=== PATIENT | female | born 1985 ===

== ENCOUNTER 2017-03-02 19:35 | Emergency (ER) | payer OTHER ==
[2017-03-02 19:45] VITALS: BP 135/83; PULSE 103; RESP 18; TEMP 98.1; O2SAT 100
[2017-03-02] MEDS ORDERED: Sodium Chloride 0.9% 1,000 ML IV STA (20:59)
--- NOTE | 2017-03-02 21:02 | ED PDOC ---
HPI: Abdomen Time Seen by Provider: 03/02/17 20:50 Chief Complaint (Nursing): Abdominal Pain Chief Complaint (Provider): abdominal pain History Per: Patient History/Exam Limitations: no limitations Onset/Duration Of Symptoms: Days (2) Current Symptoms Are (Timing): Still Present Location Of Pain/Discomfort: RLQ Quality Of Discomfort: Sharp, "Pain" Additional History Per: Patient Additional Complaint(s): 31 y/o female presents with "pain to right ovary" x 2 days. Denies fever, nausea/vomiting, changes in bowel movements, dysuria, hematuria, vaginal bleeding, vaginal dishcarge. Patient states she was seen last month for abdominal pain on same side, but that this pain is lower. Abnormal Vaginal Bleeding: No Past Medical History Reviewed: Historical Data, Nursing Documentation, Vital Signs Vital Signs: Last Vital Signs Temp 98.1 F 03/02/17 19:42 Pulse 103 H 03/02/17 19:42 Resp 18 03/02/17 19:42 BP 135/83 03/02/17 19:42 Pulse Ox 100 03/02/17 21:02 - Medical History PMH: No Chronic Diseases - Surgical History Surgical History: No Surg Hx - Family History Family History: States: Unknown Family Hx - Home Medications Home Medications: Ambulatory Orders Medication Instructions Recorded Cyclobenzaprine [Cyclobenzaprine 10 mg PO TID PRN #0 tab 12/27/15 HCl] traMADol [Ultram] 50 mg PO Q6 PRN #16 tab 12/27/15 Docusate [Colace] 100 mg PO DAILY #10 cap 01/30/17 Naproxen [Naprosyn] 500 mg PO Q12 PRN #20 tablet 03/03/17 - Allergies Allergies/Adverse Reactions: Allergies Allergy/AdvReac Type Severity Reaction Status Date / Time No Known Allergies Allergy Verified 12/26/15 23:03 Review of Systems ROS Statement: Except As Marked, All Systems Reviewed And Found Negative Gastrointestinal: Positive for: Abdominal Pain Physical Exam - Reviewed Nursing Documentation Reviewed: Yes Vital Signs Reviewed: Yes - Physical Exam Appears: Positive for: Well, Non-toxic, No Acute Distress Head Exam: Positive for: ATRAUMATIC, NORMAL INSPECTION, NORMOCEPHALIC Skin: Positive for: Normal Color Eye Exam: Positive for: Normal appearance ENT: Positive for: Normal ENT Inspection Cardiovascular/Chest: Positive for: Regular Rate, Rhythm Respiratory: Positive for: Normal Breath Sounds Gastrointestinal/Abdominal: Positive for: Bowel Sounds, Soft, Tenderness (right pelvic, suprapubic) Extremity: Positive for: Normal ROM Neurologic/Psych: Positive for: Alert, Oriented - Laboratory Results Result Diagrams: 03/02/17 22:00 03/02/17 22:15 - ECG O2 Sat by Pulse Oximetry: 100 - CT Scan/US transvaginal u/s Other Rad Studies (CT/US): Interpreted By Me Other Rad Interpretation: prelim tech reports fibroids in uterus - Progress ED Course And Treament: labs, TV u/s, urine On re-eval, patient notes improvement of pain. Patient educated on findings, discharged with rx Naproxen. Advised follow up [employer] (appt in 2 weeks) Patient advised to return to ED sooner for fever, vomiting, worsening pain, or other concerning symptoms. Disposition - Clinical Impression Clinical Impression: Uterine fibroid - Patient ED Disposition Is Patient to be Admitted: No Counseled Patient/Family Regarding: Studies Performed, Diagnosis, Need For Followup, Rx Given - Disposition Disposition: Routine/Home Disposition Time: 01:38 Condition: IMPROVED Prescriptions: Naproxen [Naprosyn] 500 mg PO Q12 PRN #20 tablet PRN Reason: Pain, Moderate (4-7) Instructions: Uterine Fibroids (ED)
[2017-03-02 22:21] LABS: BASO % 0.3 % (0.0-2.0); EOS % 0.5 % (0.0-4.0); HEMATOCRIT 39.8 % (34.0-47.0); LYMPH # 2.6 K/uL (1.0-4.3); LYMPH % 28.7 % (20.0-40.0); MEAN CELL VOLUME 87.8 fl (81.0-99.0); MEAN CORPUSCULAR HGB CONC 33.1 g/dL (33.0-37.0); MEAN PLATELET VOLUME 7.9 fl (7.2-11.7); MONO # 0.6 K/uL (0.0-0.8); MONO % 6.1 % (0.0-10.0); NEUT # 5.9 K/uL (1.8-7.0); NEUT % 64.4 % (50.0-75.0); NRBC % 0.2 % (0.0-0.0); WHITE BLOOD COUNT 9.2 K/uL (4.8-10.8)
[2017-03-02 22:37] LABS: ALKALINE PHOSPHATASE 83 U/L (38-126); ALT/SGPT 15 U/L (9-52); AST/SGOT 28 U/L (14-36); BILIRUBIN,TOTAL 0.4 mg/dl (0.2-1.3); BLOOD UREA NITROGEN 9 mg/dl (7-17); CALCIUM 9.3 mg/dL (8.4-10.2); CARBON DIOXIDE 24 mmol/L (22-30); CHLORIDE 103 mmol/L (98-107); GFR AFRICAN-AMERICAN > 60; GLUCOSE,RANDOM 94 mg/dL (65-105); POTASSIUM 4.3 MMOL/L (3.6-5.0); SODIUM 142 mmol/l (132-148); TOTAL PROTEIN 7.7 G/DL (6.3-8.2)
[2017-03-02 22:42] LABS: RBC URINE 1 /hpf (0-3); URINE BACTERIA FEW (<OCC); URINE BILIRUBIN NEGATIVE (NEGATIVE); URINE BLOOD NEGATIVE (NEGATIVE); URINE COLOR STRAW (YELLOW); URINE GLUCOSE (UA) NEGATIVE (Normal); URINE KETONE NEGATIVE (NEGATIVE); URINE LEUKOCYTE ESTERASE NEGATIVE Leu/uL (Negative); URINE PROTEIN NEGATIVE (NEGATIVE); URINE UROBILINOGEN 0.2 mg/dL (0.2-1.0); WBC URINE 1 /hpf (0-5)
--- NOTE | 2017-03-03 08:44 | US ---
HISTORY: right pelvic pain COMPARISON: None available. TECHNIQUE: Transvaginal pelvic ultrasound was performed. FINDINGS: UTERUS: Measures 7.0 x 3.4 x 4.2 cm. Anteverted, normal in size and appearance. There is a 2.6 x 1.8 x 1.6 cm intramural fibroid in the fundus posteriorly entered the right and a 2.6 x 1.7 x 1.9 cm intramural fibroid in the fundus to the left. ENDOMETRIUM: Measures 8 mm in diameter. Unremarkable. CERVIX: No cervical abnormality identified. RIGHT OVARY: Measures 2.9 x 2.0 x 2.5 cm. No solid mass. Normal flow. LEFT OVARY: Measures 3.1 x 1.4 x 2.2 cm. No solid mass. Normal flow. FREE FLUID: No significant free fluid noted. OTHER FINDINGS: None. IMPRESSION: Two intramural fibroids in the fundus to the right and left measuring about 2.6 cm. No ovarian cyst or adnexal mass.
== END 2017-03-03 01:59 | disposition home or self-care (01) ==
LOC: H.ER 19:35
DX: D25.9 Leiomyoma of uterus, unspecified (principal); R10.2 Pelvic and perineal pain

== ENCOUNTER 2017-10-28 00:27 | Emergency (ER) | payer OTHER ==
[2017-10-28 01:06] VITALS: BMI 25.0
[2017-10-28 01:19] VITALS: RESP 18; TEMP 97.9
--- NOTE | 2017-10-28 01:50 | ED PDOC ---
HPI: Hypertension/Hypotension Time Seen by Provider: 10/28/17 01:08 Chief Complaint (Nursing): Chest Pain Chief Complaint (Provider): Palpitations History Per: Patient History/Exam Limitations: no limitations Onset/Duration Of Symptoms: Sudden Onset Current Symptoms Are (Timing): Gone Now Additional Complaint(s): Patient is a 32 year old female who reports she was asleep when she awoke with an acute sense of palpitations. Describes the sensation as her heart racing and feeling generally weak. No associated nausea, vomiting, or diaphoresis. She reports the episode lasted about 10 minutes, and she has no symptoms at the present time. PMD: Dr. Jonas Clement Past Medical History Reviewed: Historical Data, Nursing Documentation, Vital Signs Vital Signs: Last Vital Signs Temp 97.9 F 10/28/17 01:12 Pulse 101 H 10/28/17 01:12 Resp 18 10/28/17 01:12 BP 142/76 10/28/17 01:12 Pulse Ox 99 10/28/17 01:12 - Medical History PMH: No Chronic Diseases - Surgical History Surgical History: No Surg Hx - Family History Family History: States: Unknown Family Hx - Social History Current smoker - smoking cessation education provided: No Alcohol: None Drugs: Denies - Home Medications Home Medications: Ambulatory Orders Medication Instructions Recorded Cyclobenzaprine [Cyclobenzaprine 10 mg PO TID PRN #0 tab 12/27/15 HCl] traMADol [Ultram] 50 mg PO Q6 PRN #16 tab 12/27/15 Docusate [Colace] 100 mg PO DAILY #10 cap 01/30/17 Naproxen [Naprosyn] 500 mg PO Q12 PRN #20 tablet 03/03/17 - Allergies Allergies/Adverse Reactions: Allergies Allergy/AdvReac Type Severity Reaction Status Date / Time No Known Allergies Allergy Verified 10/28/17 01:06 Review of Systems ROS Statement: Except As Marked, All Systems Reviewed And Found Negative Constitutional: Positive for: Weakness (generalized) Cardiovascular: Positive for: Palpitations. Negative for: Other (Diaphoresis) Gastrointestinal: Negative for: Nausea, Vomiting Physical Exam - Reviewed Nursing Documentation Reviewed: Yes Vital Signs Reviewed: Yes - Physical Exam Appears: Positive for: Non-toxic, No Acute Distress Head Exam: Positive for: ATRAUMATIC, NORMOCEPHALIC Skin: Positive for: Normal Color, Warm, Dry Eye Exam: Positive for: EOMI, Normal appearance, PERRL Neck: Positive for: Normal, Painless ROM, Supple Cardiovascular/Chest: Positive for: Regular Rate, Rhythm. Negative for: Murmur Respiratory: Positive for: Normal Breath Sounds. Negative for: Accessory Muscle Use, Respiratory Distress Gastrointestinal/Abdominal: Positive for: Normal Exam, Soft. Negative for: Tenderness Back: Positive for: Normal Inspection. Negative for: L CVA Tenderness, R CVA Tenderness, Vertebral Tenderness Extremity: Positive for: Normal ROM. Negative for: Pedal Edema, Deformity Neurologic/Psych: Positive for: Alert, Oriented - Laboratory Results Result Diagrams: 10/28/17 01:50 10/28/17 01:50 - ECG O2 Sat by Pulse Oximetry: 99 (RA) Pulse Ox Interpretation: Normal Medical Decision Making Medical Decision Making: Time: 1:40 Initial Impression: 32 year old female with palpitations Initial Plan: --EKG --CMP --Urine --CBC w/ differential --Magnesium --TSH --Pending reevaluation EKG shows normal sinus rhythm at 98 bpm, with nonspecific ST changes. Labs reviewed and revealed no clinically significant abnormalities. Time: 3:45 Patient reports improvement in symptoms and is stable for discharge home. Counseling was provided and all questions were answered regarding diagnosis and need for follow up with PMD. There is agreement to discharge plan. Return if symptoms persist or worsen. Scribe Attestation: Documented by Yue Moncada, acting as a scribe for Geraldo Mercado MD Provider Scribe Attestation: All medical record entries made by the Scribe were at my direction and personally dictated by me. I have reviewed the chart and agree that the record accurately reflects my personal performance of the history, physical exam, medical decision making, and the department course for this patient. I have also personally directed, reviewed, and agree with the discharge instructions and disposition. Disposition - Clinical Impression Clinical Impression: Palpitations - Patient ED Disposition Is Patient to be Admitted: No Counseled Patient/Family Regarding: Studies Performed, Diagnosis, Need For Followup - Disposition Referrals: Jonas Clement PA [Primary Care Provider] - Disposition: Routine/Home Disposition Time: 03:45 Condition: STABLE Instructions: Palpitations (ED) Forms: [employer] (Khmer)
[2017-10-28 02:07] LABS: BASO % 0.3 % (0.0-2.0); EOS % 0.3 % (0.0-4.0); HEMATOCRIT 41.1 % (34.0-47.0); LYMPH % 23.2 % (20.0-40.0); MEAN CELL VOLUME 89.7 fl (81.0-99.0); MEAN CORPUSCULAR HEMOGLOBIN 28.6 pg (27.0-31.0); MEAN CORPUSCULAR HGB CONC 31.9 g/dL (33.0-37.0); MEAN PLATELET VOLUME 7.9 fl (7.2-11.7); MONO # 0.5 K/uL (0.0-0.8); MONO % 6.1 % (0.0-10.0); NEUT # 6.1 K/uL (1.8-7.0); NEUT % 70.1 % (50.0-75.0); NRBC % 0.2 % (0.0-0.0); RED CELL DISTRIBUTION WIDTH 13.6 % (11.5-14.5); WHITE BLOOD COUNT 8.8 K/uL (4.8-10.8)
[2017-10-28 02:10] LABS: CALCIUM 8.9 mg/dL (8.4-10.2); CARBON DIOXIDE 22 mmol/L (22-30); CHLORIDE 108 mmol/L (98-107); GFR AFRICAN-AMERICAN > 60; GLUCOSE,RANDOM 101 mg/dL (65-105); SODIUM 138 mmol/l (132-148); TOTAL PROTEIN 7.6 G/DL (6.3-8.2)
[2017-10-28 02:11] LABS: ALB/GLOB RATIO 1.1 (1.0-2.1); BILIRUBIN,TOTAL 0.6 mg/dl (0.2-1.3)
[2017-10-28 02:17] LABS: ALKALINE PHOSPHATASE 67 U/L (38-126); ALT/SGPT 28 U/L (9-52); AST/SGOT 27 U/L (14-36); BLOOD UREA NITROGEN 5 mg/dl (7-17); MAGNESIUM 1.8 MG/DL (1.6-2.3); POTASSIUM 4.1 MMOL/L (3.6-5.0)
[2017-10-28 02:40] LABS: THYROID STIMULATING HORMONE 2.67 mIU/ML (0.46-4.68)
[2017-10-28 04:24] VITALS: BP 114/70; PULSE 81; O2SAT 94
--- NOTE | 2017-10-28 12:14 | CARD ---
APPROVED REPORT EKG Measurement Heart [id number] <Conclusion> Normal sinus rhythm Nonspecific ST and T wave abnormality Abnormal ECG
== END 2017-10-28 04:24 | disposition home or self-care (01) ==
LOC: H.ER 00:27
DX: R00.2 Palpitations (principal); I10 Essential (primary) hypertension